=== PATIENT | female | born 1980 | race Caucasian/White ===

== ENCOUNTER 2019-01-12 09:27 | Day surgery (SDC) | payer OTHER, BC ==
[2019-01-12] MEDS ORDERED: Betamet Acet/Betamet Na Ph 30 MG/5 ML VIAL IM SCH (09:45)
[2019-01-12] MEDS ORDERED: Betamet Acet/Betamet Na Ph 30 MG/5 ML VIAL ONE (10:01)
== END 2019-01-12 09:45 | disposition home or self-care (01) ==
LOC: L&D/OP 09:27
PROVIDERS: ATTEND Family Medicine
DX: Z29.8 Encounter for other specified prophylactic measures (principal)
CPT/HCPCS: J0702

== ENCOUNTER 2019-01-15 00:46 | Inpatient (IN) | payer OTHER, BC ==
[2019-01-15] MEDS ORDERED: hydrALAZINE 20 MG/ML VIAL SLOW IVP PRN ×2 (00:56→06:59)
[2019-01-15] MEDS: Lactated Ringer's 1,000 ML IV SCH ×2 (01:00→03:00)
[2019-01-15] MEDS ORDERED: Morphine 4 MG/ML VIAL SLOW IVP SCH (01:15)
[2019-01-15] MEDS ORDERED: Ondansetron PF 4 MG/2 ML Vial IVP SCH (01:15)
[2019-01-15 01:22] VITALS: BMI 28.6
[2019-01-15 01:46] LABS: FFN Internal QC Analyzer PASS (PASS); FFN Internal QC Cassette PASS (PASS); Fetal Fibronectin Negative (Negative)
[2019-01-15 01:59] LABS: Bacteria/HPF None Seen HPF (None Seen); Bilirubin Negative (Negative); Blood, Urine Negative (Negative); Clarity Clear (Clear); Glucose, Urine (Dipstick) Normal (Negative); Leukocyte Negative Leu/uL (Negative); Nitrite Negative (Negative); Protein, Urine (Dipstick) Negative (Neg-Trace); RBC/HPF 0-3 HPF (0-3); Squamous Epithelial 0-3 HPF (0-3); Urobilinogen Normal mg/dL (Less than 2); WBC/HPF None Seen HPF (0-3)
[2019-01-15] MEDS ORDERED: Calcium Gluc 4.6 MEQ/10 ML (100 MG/ML) SLOW IVP PRN (02:37)
[2019-01-15] MEDS ORDERED: Magnesium Sulfate 20 GM/WATER 500 ML BAG IVPB SCH (02:45)
[2019-01-15] MEDS ORDERED: Magnesium Sulfate 20 gm/500 ml 20 GM/500 ML BAG IVPB SCH (03:00)
[2019-01-15] MEDS: NIFEdipine 10 MG CAP PO SCH ×4 (04:39→17:41)
[2019-01-15] MEDS ORDERED: Ondansetron PF 4 MG/2 ML Vial IVP PRN (06:59)
[2019-01-15] MEDS ORDERED: Promethazine HCl 25 MG/ML VIAL IM PRN (06:59)
--- NOTE | 2019-01-15 07:39 | ULT ---
PRELIMINARY REPORT/[facility]/EMERGENCY AFTER HOURS PROCEDURE PROCEDURE INFORMATION: Exam: US , Limited Exam date and time: 01/15/2019 1:46 AM Clinical history: 38 years old, female; Pain; Other: Contractions at 31wks- eval size and cervical le ngth; Gestational age or lmp: 31wks by dates, measures 33w4d by todays scan; TECHNIQUE: Imaging protocol: Real-time ultrasound of the maternal uterus with image documentation. Exam focused on the clinical indication. COMPARISON: No relevant prior studies available. FINDINGS: GESTATION: There is a single, live intrauterine gestation. Presentation: Vertex. heart rate: 128 BPM. Placenta: Leftward. Previa: No Amniotic fluid volume: Normal (JOEL 11.7 cm.) Cervix: 1.9 cm. Closed. anatomy: Unremarkable as visualized. Biometry: BPD: 8.4 cm. 34 wks 0 d HC: 30.4 cm. 33 wks 5 d AC: 29.3 cm. 33 wks 2 d FL : 6. 4 cm. 33 wks 2 d Composite sonographic age: 33 weeks 4 days. Estimated date of confinement: 03.01.19. Estimated weight: 4 lb 13 oz +/- 11 oz (86 percentile EFW). Impression: Single, live intrauterine gestation without visible complication. Thank you for allowing us to participate in the care of your patient. Dictated and Authenticated by: Stan Blanchard MD 01/15/2019 3:44 AM Central Time ([place] & [place]) FINAL REPORT I agree with the preliminary report provided. CODE QA POS:
--- NOTE | 2019-01-15 08:41 | PDOC.EVN ---
Event Note - Event Note Event Note: Dr. Shane admitted patient overnight for contractions at 31 weeks gestation. He started magnesium for neruoprotection and procardia to help stop the contractions. She did get celestone earlier this week for a h/o contractions. No h/o labor with prior pregnancies. She is currently 31w6d by LMP, EDC 03/13/19. U/S at 8w3d gives EDC 03/08/19 making her 32w4d. U/S done early this AM showed Biometry c/w 33w4d. EFW over 4lbs. Continue magnesium for now. CTX have spaced out. WIll discuss with Dr. Pacheco - hospitalist today.
[2019-01-15 09:02] LABS: Hemoglobin 10.7 g/dL (12.0-16.0); Mean Corpuscular HGB CONC 34.6 g/dL (32.0-36.0); Mean Corpuscular Hemoglobin 31.1 pg (27.0-31.0); Mean Corpuscular Volume 89.9 fL (78.0-98.0); Mean Platelet Volume 7.1 fL (7.4-10.4); Platelet Count 221 thou/uL (130-400); RBC Distribution Width 11.1 % (11.5-14.5); Red Blood Cell (RBC) Count 3.44 mill/uL (4.20-5.40); White Blood Cell (WBC) Count 12.9 thou/uL (4.8-10.8)
--- NOTE | 2019-01-15 09:03 | PDOC.LDPN ---
Labor & Delivery Progress Note - Subjective Subjective: comfortable - Objective Vital signs reviewed and normal: yes General: NAD, resting Other exam findings: NST reactive, petty in use - Assessment (1) Threatened premature labor Code(s): O47.00 - FALSE LABOR BEFORE 37 COMPLETED WEEKS OF GEST, UNSP TRI Current Visit: Yes Status: Acute Qualifiers: Trimester: third trimester Qualified Code(s): O47.03 - False labor before 37 completed weeks of gestation, third trimester Plan: continue plan of care (2.GBS swab collected this morning by Dr. Ramos. 3. FFN results reviewed, negative. 4. VP3 reviewed w/ her, negative. 5. Cx legnth = 1.7, Thankfully cervical legnth greater than 1.5 and FFN is negative will continue to monitor 6. Steroids given ), other (1. Mag in use for neuro protection, although not actively laboring, will continue for now)
--- NOTE | 2019-01-15 09:11 | HP ---
PRIMARY STATEMENT CLERKS MANAGER: The patient's primary OB is Dr. Pinky Ramos. CHIEF COMPLAINT: Abdominal pains. HISTORY OF PRESENT ILLNESS: The patient is a 38-year-old multiparous female with an intrauterine at 31 weeks, who was on shift today as one of the labor and delivery nurses complaining of uterine contractions that have been persisting for the last couple of days. The patient had received outpatient steroids with her last dose being yesterday given a cervical exam of 2 and 50. The patient reports that her contractions have just gotten more intense and closer together, and is just unable to perform her functions. She denies any recent illness, fever, fall, headache, chest pain, shortness of breath, nausea, vomiting, diarrhea, constipation, hip problems, knee problems, muscle weakness, vaginal bleeding or leakage of fluid, urinary urgency or frequency. PAST MEDICAL HISTORY: Negative. PAST SURGICAL HISTORY: She has had digital nerve repair. ALLERGIES: SULFA. MEDICATIONS: vitamins and status post betamethasone yesterday. OB labs unavailable. REVIEW OF SYSTEMS: Per HPI. PHYSICAL EXAMINATION: VITAL SIGNS: Blood pressure is 120/73, temperature is 97.6, pulse 75, respiratory rate of 14, saturating is 100% on room air. GENERAL: She appears to be in no acute distress. She is alert, oriented, cooperative, and pleasant to interact with. HEENT: Head is normocephalic and atraumatic. LUNGS: Clear to auscultation bilaterally. HEART: Has a regular rate and rhythm. ABDOMEN: Gravid and soft. EXTREMITIES: Nontender, nonedematous. CERVICAL: Per nursing staff is 2, 50, and -2 station. heart tracing in the 130s with moderate long-term variability, positive 15 x 15 accelerations, no decelerations. Tocometer showing contractions about every 2 to 3 minutes. LABORATORY DATA: Urinalysis is negative for ketones, nitrites, leukocyte esterase, or bacteria. fibronectin is negative. IMAGING STUDIES: ultrasound shows a cervical length of 1.7 cm and a fetus weighing in the 86 percentile at 4 pounds 13 ounces and in vertex presentation. ASSESSMENT AND PLAN: The patient is a 38-year-old female with an intrauterine at 31 weeks and with a high risk for delivery and with a shortened cervical length and contractions. The patient has been placed on magnesium for seizure prophylaxis and subsequently placed on Procardia to help continue to slow down her contractions. Plan at this time is to continue on magnesium for neuroprotection for the next 24 hours. GBS will be collected and be sent. The patient is not on penicillin at this time. Should she begin changing her cervix that will be added to the regimen. Dr. Ramos, her primary OB has been notified and would like us to be the primary management team though will follow along socially. Job ID: [id number]
[2019-01-15] MEDS ORDERED: Simethicone Chewable 80 MG TAB PO SCH (09:15)
[2019-01-15 09:40] LABS: HBSAg Index 0.14 S/CO (0-0.99); Hep B Surf Ag Non-Reactive S/CO (NonReactive); Syphilis Antibody Nonreactive (Nonreactive); Syphilis Antibody Index 0.03 S/CO (<1.00 Non-Reactive)
[2019-01-15] MEDS ORDERED: Acetaminophen 500 MG TAB PO PRN (13:46)
--- NOTE | 2019-01-15 18:15 | PDOC.EVN ---
Event Note - Event Note Event Note: At Bedside Doing well Vitals stable 104/61 no CTX on toco As stable, as FFN was neg...we will stop the Mag and heplock. Obs here ion L&D off mag
--- NOTE | 2019-01-15 20:10 | PDOC.EVN ---
Event Note - Event Note Event Note: Repeat CX length was 2.0cm average Follow closely At bedside now
--- NOTE | 2019-01-15 20:19 | ULT ---
LIMITED OB ULTRASOUND FOR EVALUATION OF CERVICAL LENGTH: History: Evaluate cervical length. FINDINGS: The cervical length measures 2.1 cm. There is no overt evidence of funneling. The single intrauterine gestation is in vertex presentation. IMPRESSION: Cervical length of 2.1 cm. POS: BH
--- NOTE | 2019-01-16 06:34 | PDOC.EVN ---
Event Note - Event Note Event Note: Patient seen at bedside at 0630 Resting Feels better, occ CTX VSSAFEB arrested threatened PTL at 31-32 weeks To floor today and poss home this PM or tomorrow
[2019-01-16] MEDS: NIFEdipine 10 MG CAP PO SCH (15:53)
[2019-01-17 08:00] VITALS: BP 112/56; TEMP 98.9
--- NOTE | 2019-01-17 08:28 | DIS ---
DATE OF ADMISSION: 01/15/2019 DATE OF DISCHARGE: 01/17/2019 TIME OF SERVICE: 0715 hours. SUMMARY OF HOSPITAL COURSE: Ms. Lockett is a 38-year-old multigravida at 31 to 32 weeks by DIEGO, who has history of term deliveries in the past. She showed up with contraction, shortened cervix, and threatened labor. She was admitted and underwent IV hydration, magnesium sulfate, and corticosteroids. Contractions have ceased. Her vital signs are stable and she desires discharge. PHYSICAL EXAMINATION: VITAL SIGNS: Temperature 98.4, pulse 76, respirations 18, and blood pressure 104/56. HEENT: Within normal limits. LUNGS: Clear to auscultation bilaterally. HEART: Regular rate and rhythm. ABDOMEN: Soft and nontender. Fundal height 32 cm. FHTs 145. IMPRESSION: 31 to 32 weeks' gestation, status post magnesium and betamethasone for rest of labor. No evidence of active labor at this time. PLAN: Discharge home. Weekly followup visits with Dr. Pinky Ramos. ER precautions. Job ID: [id number]
== END 2019-01-17 09:15 | disposition home or self-care (01) | DRG 832 ==
LOC: L&D/OP 00:46 → OBSVTOIN 06:06 → L&D 06:06 → 3SW 01-16 09:50
PROVIDERS: ADMIT Family Medicine; ATTEND Family Medicine
DX: O47.03 False labor before 37 completed weeks of gestation, third trimester (principal); O26.873 Cervical shortening, third trimester; Z3A.31 31 weeks gestation of pregnancy; Z88.2 Allergy status to sulfonamides
CPT/HCPCS: 36415; 51702; 76815; 81001; 82731; 85027; 86780; 86850; 86900; 86901; 87081; 87340; 87480; 87510; 87660; 99285; J0702; J2270; J2405; J3475

== ENCOUNTER 2019-02-22 19:39 | Inpatient (IN) | payer OTHER, BC ==
[~2019-02-22 19:39] MED LIST: Bupivacaine/Epinephrine 0.25% 30 ML VIAL ONE
[2019-02-22 20:59] LABS: Hemoglobin 11.6 g/dL (12.0-16.0); Mean Corpuscular HGB CONC 34.3 g/dL (32.0-36.0); Mean Corpuscular Hemoglobin 30.4 pg (27.0-31.0); Mean Corpuscular Volume 88.5 fL (78.0-98.0); Mean Platelet Volume 8.4 fL (7.4-10.4); Platelet Count 149 thou/uL (130-400); RBC Distribution Width 12.4 % (11.5-14.5); Red Blood Cell (RBC) Count 3.81 mill/uL (4.20-5.40); White Blood Cell (WBC) Count 12.6 thou/uL (4.8-10.8)
[2019-02-22] MEDS ORDERED: Ondansetron PF 4 MG/2 ML Vial IVP PRN ×2 (21:05→21:55)
[2019-02-22] MEDS ORDERED: Ibuprofen 800 MG TAB PO PRN (21:05)
[2019-02-22] MEDS ORDERED: Lidocaine 1% (PF) 30 ML VIAL SC PRN (21:05)
[2019-02-22] MEDS ORDERED: NS / Oxytocin 40 units/1000ml 1,000 ML IV PRN (21:05)
[2019-02-22] MEDS ORDERED: hydrALAZINE 20 MG/ML VIAL SLOW IVP PRN (21:05)
[2019-02-22] MEDS ORDERED: Butorphanol Tartrate 1 MG/ML VIAL SLOW IVP PRN (21:05)
[2019-02-22] MEDS ORDERED: HYDROcodone/Acetaminophen 5/325 mg Tablet PO PRN ×2 (21:05)
[2019-02-22] MEDS ORDERED: Fentanyl 4 mcg/Bup 0.1% Cadd 100 ML ONE (21:07)
[2019-02-22] MEDS ORDERED: Lactated Ringer's 1,000 ML IV SCH ×2 (21:15)
[2019-02-22 21:42] LABS: Syphilis Antibody Nonreactive (Nonreactive); Syphilis Antibody Index 0.04 S/CO (<1.00 Non-Reactive)
--- NOTE | 2019-02-22 21:46 | PDOC.LDHP ---
Labor and Delivery H&P Chief complaint: contractions HPI: Prior labor with this , successfully stopped. Now with contractions since this afternoon. Getting stronger, more painful. Current gestational age (weeks): 37 Due date: 03/13/19 Dating criteria: last menstrual period, first trimester ultrasound Grav: 3 Para: 2 Current complications: other ( labor - given steroids at 32 weeks) Abnormal US findings: No Current medications: pre- vitamins Allergies/Adverse Reactions: Allergies Allergy/AdvReac Type Severity Reaction Status Date / Time Sulfa (Sulfonamide Allergy Verified 01/15/19 01:23 Antibiotics) Social history: none - Physical Exam Vital signs reviewed and normal: yes General: NAD Heart: RRR Lungs: other (Dry cough, frequent) Abdomen: gravid Extremeties: no edema FHT: category 1, variability present Emery contractions every: 3 minutes - Vaginal Exam cm dilated: 5 Effacement: 90% Station: -1 - OB Labs Blood type: A RH: positive Antibody Screen: negative HIV: negative RPR: negative HEPSAg: negative 1 hour GCT: negative GBS: negative Urine drug screen: not done Rubella: immune - Assessment L&D Assessment: term patient in labor - Plan Plan: admit to L&D, labor augmentation if indicated, informed consent obtained, anesthesia consult for pain management
[2019-02-22] MEDS ORDERED: Benzonatate 100 MG CAP PO PRN (21:49)
[2019-02-22] MEDS ORDERED: Acetaminophen 325 MG TAB PO PRN (21:55)
[2019-02-22] MEDS ORDERED: Naloxone HCl 0.4 mg/ml Vial IVP PRN ×2 (21:55)
[2019-02-22] MEDS ORDERED: diphenhydrAMINE 50 MG/ML VIAL IVP PRN (21:55)
[2019-02-22] MEDS ORDERED: Lactated Ringer's 500 ML IV PRN (21:55)
[2019-02-22] MEDS ORDERED: ePHEDrine/0.9% NaCl/PF SYRINGE 50 mg/10 ml SLOW IVP PRN (21:55)
[2019-02-22] MEDS ORDERED: Promethazine HCl 25 MG/ML VIAL IM PRN (21:55)
[2019-02-22] MEDS ORDERED: Fentanyl 4 mcg/Bupivacaine 0.1% Cassette 100 ML EPIDURAL SCH (22:00)
[2019-02-22] MEDS ORDERED: Communication Order-Pharmacy FS SCH (22:00)
[2019-02-22 22:42] LABS: HBSAg Index 0.15 S/CO (0-0.99); Hep B Surf Ag Non-Reactive S/CO (NonReactive)
--- NOTE | 2019-02-23 02:01 | PDOC.OPDEL ---
OB Operative/Delivery Note Delivery Dr/Surgeon: Richard Pre-Delivery Diagnosis: active labor (37 weeks 3 days. H/O labor this - arrested. Steroids givne at 32 weeks.) Procedure/Post Delivery Dx: spontaneous vaginal delivery (Head OA, no nuchal cord, shoulders and body easily followed.) Weeks gestation: 37 Anesthesia: epidural - Findings A Sex: female - 1 min: 7 (Spontaneous cry, poor color, responded to blow by O2) - 5 min: 8 - Additional Findings/Plan Placenta delivered: spontaneous Repaired Obstetrical Laceration: none Estimated blood loss: 50 Post delivery plan: routine recovery
[2019-02-23 03:41] VITALS: BMI 29.4
[2019-02-23] MEDS ORDERED: Benzocaine-Menthol 82.5 ML CAN TOP PRN (03:41)
[2019-02-23] MEDS ORDERED: hydrALAZINE 20 MG/ML VIAL SLOW IVP PRN (03:41)
[2019-02-23] MEDS ORDERED: NS / Oxytocin 40 units/1000ml 1,000 ML IV SCH (03:41)
[2019-02-23] MEDS ORDERED: Bisacodyl 10 MG SUPP PR PRN (03:41)
[2019-02-23] MEDS ORDERED: Preparation H Ointment 28 GM TUBE PR PRN (03:41)
[2019-02-23] MEDS ORDERED: Milk Of Magnesia 30 ML UDCUP PO PRN (03:41)
[2019-02-23] MEDS ORDERED: Ibuprofen 800 MG TAB PO SCH (04:00)
[2019-02-23] MEDS: HYDROcodone/Acetaminophen 5/325 mg Tablet PO PRN ×2 (04:31→21:17)
[2019-02-23] MEDS: Ferrous Sulfate 325 MG TAB PO SCH ×2 (07:51→17:24)
[2019-02-23] MEDS ORDERED: Adacel (T-DAP) 0.5 ML SYRINGE IM ONE (09:00)
[2019-02-23] MEDS: Docusate Calcium (SURFAK) 240 MG CAP PO SCH ×2 (09:34→21:17)
[2019-02-23] MEDS: Ibuprofen 800 MG TAB PO SCH ×2 (14:25→21:17)
[2019-02-24] MEDS: Ibuprofen 800 MG TAB PO SCH (05:15)
[2019-02-24 07:37] VITALS: BP 106/57; TEMP 98
[2019-02-24] MEDS: Ferrous Sulfate 325 MG TAB PO SCH (09:25)
[2019-02-24] MEDS: Docusate Calcium (SURFAK) 240 MG CAP PO SCH (09:25)
--- NOTE | 2019-02-24 10:12 | PDOC.PP ---
Post Progress Note Post Day #: 1 Subjective: Doing well. Tired but feeling well. improving. PO intake tolerated: yes Flatus: yes Ambulation: yes Vital Signs (12 hours) Temp Pulse Resp BP Pulse Ox 02/24/19 07:36 98.0 F 66 20 106/57 L 96 02/24/19 00:25 98.2 F 63 16 95/55 L Weight Weight 188 lb - Physical Examination General: NAD Cardiovascular: no m/r/g, RRR Respiratory: clear to auscultation bilaterally Abdominal: + bowel sounds Extremities: negative homans (B) Neurological: no gross focal deficits Psychiatric: A&Ox3 Result Diagrams: 02/22/19 20:44 Additional Labs: Post Labs Blood Type A POSITIVE 02/22/19 20:44 Hep Bs Antigen Non-Reactive S/CO (NonReactive) 02/22/19 20:44 (1) Vaginal delivery Status: Acute - Assessment/Plan Routine PP care D/C home F/U in 6 weeks
== END 2019-02-24 12:30 | disposition home or self-care (01) | DRG 807 ==
LOC: L&D/OP 19:39 → L&D-LIB 21:21 → 3SW 02-23 04:43
PROVIDERS: ADMIT Family Medicine; ATTEND Family Medicine
PROC: 10E0XZZ Delivery of Products of Conception, External Approach (ICD-10-PCS; principal; 2019-02-23)
PROC: 10907ZC Drainage of Amniotic Fluid, Therapeutic from Products of Conception, Via Natural or Artificial Opening (ICD-10-PCS; 2019-02-23)
DX: O80 Encounter for full-term uncomplicated delivery (principal); Z37.0 Single live birth; Z3A.37 37 weeks gestation of pregnancy
CPT/HCPCS: 36416; 51702; 85027; 86780; 86900; 86901; 87340; 99285

== ENCOUNTER 2024-05-02 08:14 | Outpatient (CLI) | payer BC | END 2024-05-02 08:15 | disposition home or self-care (01) | LOC: BICMAMMO 08:14 | PROVIDERS: ATTEND Family Medicine | DX: N63.21 Unspecified lump in the left breast, upper outer quadrant (principal); N64.52 Nipple discharge | CPT/HCPCS: 76642; 77066; G0279 ==